=== PATIENT | male | born 1975 | race Caucasian/White ===

== ENCOUNTER 2024-01-29 16:11 | Emergency (ER) | payer OTHER, SELFPAY ==
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
[2024-01-29 16:26] VITALS: BP 130/64; BP 136/67; PULSE 60; PULSE 65; RESP 18; TEMP 36.7; O2SAT 98; O2SAT 99; BMI 25.1
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
[2024-01-29 18:54] VITALS: BP 95/58; PULSE 54; RESP 18; TEMP 36.8; O2SAT 95
[2024-01-29 19:06] VITALS: BP 104/58; PULSE 64; RESP 16; TEMP 36.8; O2SAT 95
--- OUTSIDE RECORDS SUMMARY | 2024-01-30 22:30 | XMS_ITS ---
Author Name [facility] Organization Unknown History of Medication Use Medication Directions Dispensed Refills Start Date End Date Stat Eliquis 5 MG tablet TAKE 1 TABLET TWICE A DAY 04/29/2023 active dofetilide (TIKOSYN) 250 MCG capsule Take 1 capsule (250 mcg total) by mouth 2 (two) times a day. 11/22/2021 aborted ascorbic acid (VITAMIN C) 250 MG tablet Take 1 tablet (250 mg total) by mouth daily. 11/22/2021 active MULTIPLE VITAMINS-MINERALS ER PO Take by mouth daily. 11/22/2021 active magnesium (MAGTAB) 84 MG (7MEQ) Tab CR Take 1 tablet (84 mg total) by mouth 2 (two) times a day. 11/22/2021 active dofetilide (TIKOSYN) 250 MCG capsule TAKE ONE CAPSULE BY MOUTH 2 TIMES A DAY 11/29/2021 active apixaban (Eliquis) 5 MG tablet Take 1 tablet (5 mg total) by mouth 2 (two) times a day. 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
== END 2024-01-29 19:07 | disposition home or self-care (01) ==
PROVIDERS: Emergency Provider Emergency Medicine
DX: S09.90XA Unspecified injury of head, initial encounter (principal); S16.1XXA Strain of muscle, fascia and tendon at neck level, initial encounter; V43.52XA Car driver injured in collision with other type car in traffic accident, initial encounter; Y93.9 Activity, unspecified; Y92.410 Unspecified street and highway as the place of occurrence of the external cause; Y99.9 Unspecified external cause status; E04.9 Nontoxic goiter, unspecified; I48.91 Unspecified atrial fibrillation; Z79.01 Long term (current) use of anticoagulants
CPT/HCPCS: 70450; 72125; 73521; 73552; 99284